=== PATIENT | male | born 1955 | race Caucasian/White ===

== ENCOUNTER 2016-10-27 19:25 | Emergency (ER) | payer MEDICAID ==
[~2016-10-27] VITALS: Ht 177.8 cm; Wt 106.6 kg
[2016-10-27 19:30] VITALS: BP 115/70
[2016-10-27 20:22] LABS: APPEARANCE,URINE HAZY (CLEAR); BILIRUBIN,URINE NEGATIVE (NEGATIVE); BLOOD, URINE 3+ (NEGATIVE); COLOR,URINE RED (YELLOW); LEUKOCYTE ESTERASE ,URINE 2+ (NEGATIVE); NITRITE, URINE NEGATIVE (NEGATIVE); PROTEIN,URINE 2+ (NEGATIVE); UGLUCOSE NEGATIVE (NEGATIVE); UROBILINOGEN,URINE 0.2 EU/dL (0.2 - 1)
[2016-10-27 20:26] LABS: RBC,URINE TOO NUMEROUS TO COUN /HPF (0-5); WBC,URINE 40-60 /HPF (0-5)
[2016-10-27 20:27] LABS: BACTERIA,URINE RARE /HPF (None Seen); SQUAMOUS EPITHELIAL CELL,UR 0-3 /LPF (0-3 (FEW))
--- NOTE | 2016-10-27 21:05 | NUR ---
TO ER BED 5
--- NOTE | 2016-10-27 21:30 | NUR ---
61Y/M PT. PRESENTS TO ED WITH C/O HEMATURIA X 1 DAY. PT. WAS DIAGNIOSED UTI LAST WK, FINISHED ATB. HX. PROSTATE CA, STROKE, IL, DVT, GOUT, HTN. AAO X4, AMBULATORY WITH STEADY GAIT. RESPIRATIONS ROOM AIR, EVEN AND UNLABORED. SKIN WARM AND DRY. VSS, NO S/SX OF DISTRESS AT THIS TIME. ER MD MADE AWARE OF PT. STATUS.
--- NOTE | 2016-10-27 21:30 | NUR ---
Patient being evaluated by DR. MARTINEZ at bedside.
[2016-10-27 22:21] LABS: BASOPHILS # (AUTO) 0.4 K/uL (0.00-0.22); BASOPHILS % (AUTO) 3.6 % (0.0-2.0); EOSINOPHILS # (AUTO) 0.4 K/uL (0-0.4); EOSINOPHILS % (AUTO) 3.6 % (0.0-4.0); HEMATOCRIT 45.9 % (36-52); HEMOGLOBIN 15.2 g/dL (12.0-18.0); LYMPHOCYTES # (AUTO) 1.1 K/uL (2.0-11.5); LYMPHOCYTES % (AUTO) 10.1 % (20.5-51.1); MEAN CORPUSCULAR HEMOGLOBIN 31 pg (27-31); MEAN CORPUSCULAR HGB CONC 33 g/dL (33-37); MEAN CORPUSCULAR VOLUME 94 fL (80-94); MONOCYTES # (AUTO) 0.3 K/uL (0.8-1.0); MONOCYTES % (AUTO) 3.2 % (1.7-9.3); NEUTROPHILS # (AUTO) 8.4 K/uL (1.8-7.7); NEUTROPHILS % (AUTO) 79.5 % (42.2-75.2); PLATELET COUNT (AUTO) 352 K/uL (140-450); RED BLOOD CELL COUNT(AUTO) 4.88 MIL/uL (4.20-6.10); RED CELL DISTRIBUTION WIDTH 13.1 % (11.6-13.7); WHITE BLOOD COUNT (AUTO) 10.6 K/uL (4.8-10.8)
[2016-10-27 22:25] LABS: ANION GAP 12.5 (8-16); CALCIUM 8.3 mg/dL (8.5-10.1); CARBON DIOXIDE 26.6 mmol/L (21-32); CREATININE 0.8 mg/dL (0.7-1.3); POTASSIUM 4.1 mmol/L (3.5-5.1)
[2016-10-27 22:31] LABS: ALBUMIN 3.3 g/dL (3.4-5.0); TOTAL BILIRUBIN 0.4 mg/dL (0.0-1.0); TOTAL PROTEIN, SERUM 7.2 g/dL (6.4-8.2)
[2016-10-27 22:33] LABS: LACTIC ACID 0.6 mmol/L (0.4-2.0)
[2016-10-28] MEDS ORDERED: cefTRIAXone 1,000 MG in LIDOCAINE 1% ED 2.1 ML IM ONE (01:00)
[2016-10-28 01:31] VITALS: BP 120/59
--- NOTE | 2016-10-28 01:31 | NUR ---
Patient discharged with v/s stable. Written and verbal after care instructions given and explained. Patient alert, oriented and verbalized understanding of instructions. Ambulatory with steady gait. All questions addressed prior to discharge. ID band removed. Patient advised to follow up with PMD. Rx of CIPRO 500 MG given. Patient educated on indication of medication including possible reaction and side effects. Opportunity to ask questions provided and answered.
== END 2016-10-28 01:31 | disposition home or self-care (01) ==
LOC: MED 19:25
DX: N30.91 Cystitis, unspecified with hematuria (principal); K80.20 Calculus of gallbladder without cholecystitis without obstruction; I10 Essential (primary) hypertension; I25.2 Old myocardial infarction; Z85.46 Personal history of malignant neoplasm of prostate; Z86.73 Personal history of transient ischemic attack (TIA), and cerebral infarction without residual deficits
CPT/HCPCS: 36415; 74176; 80053; 81001; 83605; 85025; 87040; 87086; 87186; 96372; 99285; J0696; J2001

== ENCOUNTER 2020-11-27 14:53 | Emergency (ER) | payer MEDICAID ==
[~2020-11-27] VITALS: Ht 177.8 cm; Wt 127.0 kg
[2020-11-27 15:13] VITALS: BP 118/56
--- NOTE | 2020-11-27 15:17 | NUR ---
PATIENT PROVIDED URINE CUP FOR SAMPLE
--- NOTE | 2020-11-27 15:18 | NUR ---
PT SENT TO ER LOBBY TO WAIT FOR AVAILABLE BED.
[2020-11-27] MEDS ORDERED: SULF-59 PO (16:42)
--- NOTE | 2020-11-27 16:49 | NUR ---
NO NURSING INTERVENTIONS PROVIDED. PT SEEN AND D/C BY MICHAEL GA
--- NOTE | 2020-11-27 16:50 | NUR ---
Patient discharged with v/s stable. Written and verbal after care instructions ABOUT UTI given and explained. Patient alert, oriented and verbalized understanding of instructions. Ambulatory with steady gait. All questions addressed prior to discharge. ID band removed. Patient advised to follow up with PMD. Rx of BACTRIM DS TABLET given. Patient educated on indication of medication including possible reaction and side effects. Opportunity to ask questions provided and answered.
[2020-11-27 17:45] LABS: APPEARANCE,URINE CLEAR (CLEAR); BILIRUBIN,URINE NEGATIVE (NEGATIVE); BLOOD, URINE 3+ (NEGATIVE); COLOR,URINE YELLOW (YELLOW); LEUKOCYTE ESTERASE ,URINE TRACE (NEGATIVE); NITRITE, URINE NEGATIVE (NEGATIVE); UGLUCOSE NEGATIVE (NEGATIVE)
[2020-11-27 18:06] LABS: RBC,URINE 20-50 /HPF (0-5)
== END 2020-11-27 16:50 | disposition home or self-care (01) ==
LOC: MED 14:53
DX: N39.0 Urinary tract infection, site not specified (principal); I10 Essential (primary) hypertension; Z79.899 Other long term (current) drug therapy; Z95.0 Presence of cardiac pacemaker; Z85.46 Personal history of malignant neoplasm of prostate
CPT/HCPCS: 81001; 87086; 99283

== ENCOUNTER 2021-04-03 09:37 | Emergency (ER) | payer OTHER, MEDICAID ==
[~2021-04-03] VITALS: Ht 177.8 cm; Wt 138.3 kg
[~2021-04-03 09:37] MED LIST: SULF-59 PO
[2021-04-03 10:18] VITALS: BP 133/87
[2021-04-03] MEDS ORDERED: OFLO5SOL BOTH EYES (11:46)
[2021-04-03] MEDS ORDERED: CIPR7.5S OT (11:51)
[2021-04-03] MEDS ORDERED: TOMOMETER 1 DEV DEV MC ONE (12:33)
[2021-04-03] MEDS ORDERED: FLUORESCEIN OPTH STRIP 1 MG ONE (12:33)
[2021-04-03] MEDS ORDERED: TETRACAINE HCL/PF 0.5% OPTH 4 ML BTL OP ONE (12:35)
[2021-04-03] MEDS ORDERED: FLUORESCEIN OPTH STRIP 1 MG OP ONE (12:35)
--- NOTE | 2021-04-03 13:09 | NUR ---
65/M BIB SELF WITH C/O BILATERAL EAR PAIN AND LEFT EYE PAIN. PATIENT STATES HE HAS BEEN HAVING CLEAR DISCHARGE FROM THE EYE. DENIES TAKING MEDICATION AT HOME, DENIES COUGH OR COLD SYMPTOMS.
[2021-04-03 13:12] VITALS: BP 138/72
--- NOTE | 2021-04-03 13:13 | NUR ---
Patient discharged with v/s stable. Written and verbal after care instructions given and explained. Patient alert, oriented and verbalized understanding of instructions. Ambulatory with steady gait. All questions addressed prior to discharge. ID band removed. Patient advised to follow up with PMD. Rx of CIPRODEX AND OCUFLOX given. Patient educated on indication of medication including possible reaction and side effects. Opportunity to ask questions provided and answered.
== END 2021-04-03 13:13 | disposition home or self-care (01) ==
LOC: MED 09:37
DX: H10.9 Unspecified conjunctivitis (principal); H60.92 Unspecified otitis externa, left ear; I10 Essential (primary) hypertension; E78.5 Hyperlipidemia, unspecified; I25.2 Old myocardial infarction; Z86.73 Personal history of transient ischemic attack (TIA), and cerebral infarction without residual deficits; Z79.899 Other long term (current) drug therapy
CPT/HCPCS: 99283